=== PATIENT | male | born 1930 | race Caucasian/White ===

== ENCOUNTER → 2016-03-10 | Outpatient (CLI) | payer MEDICARE, BC ==
[~2016-03-10] MED LIST: ACTOS30 MG PO; AMBIEN 5MG TABLE5 MG PO; ASPIRIN 81M81 MG/TA2 PO; CORDARONE200 MG/TAB PO; CRESTOR 10MG10 MG PO; Colace PO; FLOMAX 0.40.4 MG/CAP PO; GLUCOPHAGE1000 MG PO; GLUCOTROL 5M5 MG/TAB PO; HUMALOG100 U/ML SC; HUMALOG100 U/ML SQ; JANUVIA 100MG100 MG PO; KLOR-CON M2020 MEQ PO; LANTUS100 U/ML SC; LASIX 40MG TABL40 MG PO; MAALOX MAX + ANT1 ML PO; NITROSTAT0.4 MG/TAB SL; PEPCID 20MG TAB20 MG PO; PLAVIX 75MG TAB75 MG PO; PRINIVIL10 MG PO; PROSCAR 5MG5 MG PO; ROXICODONE 55 MG/TAB PO; TOPROL XL 25MG25 MG PO; TRESIBA FL200 UNIT/1 SQ; TYLENOL 325MG325 MG PO; ZOFRAN 4MG T4 MG/TAB PO; ZOFRAN INJ4 MG/2 ML IV; ZOFRAN ODT4 MG PO
== END ==
LOC: SUN.DIA 02-17 15:30
DX: E11.40 Type 2 diabetes mellitus with diabetic neuropathy, unspecified (principal); E11.65 Type 2 diabetes mellitus with hyperglycemia; Z79.4 Long term (current) use of insulin; Z71.3 Dietary counseling and surveillance; E78.5 Hyperlipidemia, unspecified; I10 Essential (primary) hypertension; Z87.891 Personal history of nicotine dependence

== ENCOUNTER → 2016-04-21 | Outpatient (CLI) | payer MEDICARE, BC | LOC: SUN.DIA 08:52 | DX: E11.40 Type 2 diabetes mellitus with diabetic neuropathy, unspecified (principal); E11.65 Type 2 diabetes mellitus with hyperglycemia; Z79.4 Long term (current) use of insulin; Z68.32 Body mass index [BMI] 32.0-32.9, adult; Z71.3 Dietary counseling and surveillance; E78.5 Hyperlipidemia, unspecified; I10 Essential (primary) hypertension ==

== ENCOUNTER → 2016-07-20 | Outpatient (CLI) | payer MEDICARE, BC | LOC: SUN.DIA 14:07 | DX: E11.40 Type 2 diabetes mellitus with diabetic neuropathy, unspecified (principal); Z79.4 Long term (current) use of insulin; E78.5 Hyperlipidemia, unspecified; I10 Essential (primary) hypertension; E66.9 Obesity, unspecified; Z68.31 Body mass index [BMI] 31.0-31.9, adult; Z71.3 Dietary counseling and surveillance; Z87.891 Personal history of nicotine dependence | CPT/HCPCS: G0108 ==

== ENCOUNTER 2016-09-02 13:58 | Emergency (ER) | payer MEDICARE, BC ==
[~2016-09-02] VITALS: Ht 175.3 cm; Wt 97.7 kg
[~2016-09-02 13:58] MED LIST changes: -HUMALOG100 U/ML SQ; -TRESIBA FL200 UNIT/1 SQ
[2016-09-02 14:02] VITALS: TEMP 97.4
[2016-09-02 15:10] LABS: BASO % 0.6 % (0.0-2.0); EOS # 0.6 (0.0-0.7); EOS % 9.7 % (0-4.0); GRAN # 3.8 (1.4-6.5); GRAN % 60.5 % (42.2-75.2); HEMATOCRIT 40.9 % (42.0-52.0); HEMOGLOBIN 13.3 g/dl (13.5-18.0); LYMPH # 1.2 (1.2-3.4); LYMPH % 18.3 % (20.0-51.0); MEAN CELL VOLUME 86 fl (80.0-100.0); MEAN CORPUSCULAR HEMOGLOBIN 28 pg (27.0-31.0); MEAN CORPUSCULAR HGB CONC 33 g/dl (33.0-37.0); MEAN PLATELET VOLUME 10.6 fl (7.4-10.4); MONO # 0.7 (0.1-0.6); MONO % 10.6 % (1.7-9.3); PLATELET COUNT 200 K/mm3 (130-400); RED BLOOD COUNT 4.76 M/mm3 (4.20-5.60); REDCELL DISTRIBUTION WIDTH-CV 14.5 % (11.5-14.5); WHITE BLOOD COUNT 6.3 K/mm3 (4.8-10.8)
[2016-09-02] MEDS ORDERED: TRESIBA FL200 UNIT/1 SQ (15:13)
[2016-09-02] MEDS ORDERED: HUMALOG100 U/ML SQ (15:14)
[2016-09-02 15:24] LABS: ALANINE AMINOTRANSFERASE 23 U/L (21-72); ALBUMIN 3.7 gm/dL (3.5-5.0); ALKALINE PHOSPHATASE 65 U/L (50-136); ANION GAP 11 mmol/L (7-16); BILIRUBIN,TOTAL 0.5 mg/dL (0.0-1.0); BLOOD UREA NITROGEN 24 mg/dL (9-20); CALCIUM 8.8 mg/dL (8.4-10.2); CARBON DIOXIDE 26 mmol/L (22-30); CHLORIDE 99 mmol/L (98-107); CREATININE, serum 0.97 mg/dL (0.66-1.25); GLUCOSE 391 mg/dL (74-106); LIPASE 46 U/L (23-300); POTASSIUM 4.4 mmol/L (3.4-5.0); SODIUM 135 mmol/L (137-145); TOTAL PROTEIN 6.7 gm/dL (6.4-8.2)
[2016-09-02 15:25] LABS: C-REACTIVE PROTEIN < 0.5 mg/dL (0.0-0.9)
[2016-09-02 15:33] LABS: B-TYPE NATRIURETIC PEPTIDE 778 pg/mL (0-450); TROPONIN-I < 0.012 ng/mL (0.000-0.034)
[2016-09-02 15:36] LABS: ERYTHROCYTE SEDIMENTATION RATE 6 mm/hr (0-30)
[2016-09-02 16:20] VITALS: BP 167/71; PULSE 62
== END 2016-09-02 17:47 | disposition home or self-care (01) ==
LOC: COL.ER 13:58
PROVIDERS: Emergency Medicine
DX: E11.65 Type 2 diabetes mellitus with hyperglycemia (principal); R55 Syncope and collapse; I25.10 Atherosclerotic heart disease of native coronary artery without angina pectoris; Z95.1 Presence of aortocoronary bypass graft; I10 Essential (primary) hypertension; Z79.4 Long term (current) use of insulin; Z79.02 Long term (current) use of antithrombotics/antiplatelets
CPT/HCPCS: J1815; J7030

== ENCOUNTER → 2017-05-03 | Outpatient (CLI) | payer MEDICARE, BC ==
[~2017-05-03] MED LIST changes: +HUMALOG100 U/ML SQ; +TRESIBA FL200 UNIT/1 SQ
== END ==
LOC: SUN.DIA 08:19
DX: E11.40 Type 2 diabetes mellitus with diabetic neuropathy, unspecified (principal); Z79.4 Long term (current) use of insulin; I11.9 Hypertensive heart disease without heart failure; E78.5 Hyperlipidemia, unspecified; E66.9 Obesity, unspecified; Z68.32 Body mass index [BMI] 32.0-32.9, adult; Z71.3 Dietary counseling and surveillance; Z87.891 Personal history of nicotine dependence
CPT/HCPCS: G0108

== ENCOUNTER → 2017-08-23 | Outpatient (CLI) | payer MEDICARE, BC | LOC: SUN.DIA 08-02 16:13 | DX: E11.40 Type 2 diabetes mellitus with diabetic neuropathy, unspecified (principal); Z79.4 Long term (current) use of insulin; I11.9 Hypertensive heart disease without heart failure; E78.5 Hyperlipidemia, unspecified; E66.9 Obesity, unspecified; Z68.31 Body mass index [BMI] 31.0-31.9, adult; Z71.3 Dietary counseling and surveillance; Z87.891 Personal history of nicotine dependence | CPT/HCPCS: G0108 ==

== ENCOUNTER → 2017-09-14 | Outpatient (CLI) | payer MEDICARE, BC | LOC: SUN.DIA 13:41 | DX: E11.40 Type 2 diabetes mellitus with diabetic neuropathy, unspecified (principal); E78.5 Hyperlipidemia, unspecified; I10 Essential (primary) hypertension; E66.9 Obesity, unspecified; F17.210 Nicotine dependence, cigarettes, uncomplicated; Z79.4 Long term (current) use of insulin | CPT/HCPCS: G0108 ==

== ENCOUNTER → 2017-10-13 | Outpatient (CLI) | payer MEDICARE, BC | LOC: SUN.DIA 13:51 | DX: E11.40 Type 2 diabetes mellitus with diabetic neuropathy, unspecified (principal); E78.5 Hyperlipidemia, unspecified; I10 Essential (primary) hypertension; E66.9 Obesity, unspecified; F17.210 Nicotine dependence, cigarettes, uncomplicated; Z79.4 Long term (current) use of insulin | CPT/HCPCS: G0108 ==

== ENCOUNTER → 2018-01-19 | Outpatient (CLI) | payer MEDICARE, BC | LOC: SUN.DIA 01-12 11:03 | DX: E11.40 Type 2 diabetes mellitus with diabetic neuropathy, unspecified (principal); E78.5 Hyperlipidemia, unspecified; I10 Essential (primary) hypertension; E66.9 Obesity, unspecified; F17.210 Nicotine dependence, cigarettes, uncomplicated; Z79.4 Long term (current) use of insulin | CPT/HCPCS: G0108 ==

== ENCOUNTER → 2018-03-27 | Outpatient (CLI) | payer MEDICARE, BC | LOC: SUN.DIA 02-21 09:48 | DX: E11.40 Type 2 diabetes mellitus with diabetic neuropathy, unspecified (principal); E78.5 Hyperlipidemia, unspecified; I10 Essential (primary) hypertension; E66.9 Obesity, unspecified; F17.210 Nicotine dependence, cigarettes, uncomplicated; Z79.4 Long term (current) use of insulin | CPT/HCPCS: G0108 ==

== ENCOUNTER → 2018-06-13 | Outpatient (CLI) | payer MEDICARE, BC | LOC: SUN.DIA 05-22 08:00 | DX: E11.9 Type 2 diabetes mellitus without complications (principal); E78.5 Hyperlipidemia, unspecified; I10 Essential (primary) hypertension; Z79.4 Long term (current) use of insulin | CPT/HCPCS: G0108 ==

== ENCOUNTER 2018-06-23 05:19 | Emergency (ER) | payer MEDICARE, BC ==
[~2018-06-23] VITALS: Ht 175.3 cm; Wt 95.5 kg
[2018-06-23 06:07] LABS: BASO # 0.1 (0.0-0.2); EOS # 0.4 (0.0-0.7); EOS % 4.8 % (0-4.0); GRAN # 4.5 (1.4-6.5); GRAN % 62.5 % (42.2-75.2); HEMATOCRIT 42.9 % (42.0-52.0); HEMOGLOBIN 13.8 g/dl (13.5-18.0); LYMPH # 1.5 (1.2-3.4); LYMPH % 20.1 % (20.0-51.0); MEAN CELL VOLUME 86 fl (80.0-100.0); MEAN CORPUSCULAR HEMOGLOBIN 28 pg (27.0-31.0); MEAN CORPUSCULAR HGB CONC 32 g/dl (33.0-37.0); MEAN PLATELET VOLUME 10.7 fl (7.4-10.4); MONO # 0.8 (0.1-0.6); MONO % 11.2 % (1.7-9.3); PLATELET COUNT 253 K/mm3 (130-400); RED BLOOD COUNT 5.02 M/mm3 (4.20-5.60); REDCELL DISTRIBUTION WIDTH-CV 15.5 % (11.5-14.5)
[2018-06-23 06:21] LABS: ALANINE AMINOTRANSFERASE < 6 U/L (21-72); ALBUMIN 3.6 gm/dL (3.5-5.0); ALKALINE PHOSPHATASE 76 U/L (50-136); ANION GAP 12 mmol/L (7-16); AST,SGOT 25 U/L (15-37); BILIRUBIN,TOTAL 0.4 mg/dL (0.0-1.0); BLOOD UREA NITROGEN 21 mg/dL (9-20); CALCIUM 8.7 mg/dL (8.4-10.2); CARBON DIOXIDE 24 mmol/L (22-30); CHLORIDE 105 mmol/L (98-107); CREATININE, serum 1.02 (0.66-1.25); GLUCOSE 215 mg/dL (74-106); LIPASE 67 U/L (23-300); POTASSIUM 4.1 mmol/L (3.4-5.0); SODIUM 141 mmol/L (137-145); TOTAL PROTEIN 6.8 gm/dL (6.4-8.2)
[2018-06-23 06:24] VITALS: TEMP 97.3
[2018-06-23 06:33] LABS: TROPONIN-I 0.035 ng/mL (0.000-0.035)
[2018-06-23 07:14] LABS: PH 5 (5-8); SQUAMOUS EPITHELIAL None Seen /hpf; URINE APPEARANCE Clear; URINE BACTERIA None Seen /hpf; URINE BILIRUBIN Negative (NEGATIVE); URINE BLOOD Negative (NEGATIVE); URINE COLOR Yellow; URINE GLUCOSE 3+ (NEGATIVE); URINE KETONE Negative (NEGATIVE); URINE LEUKOCYTE ESTERASE Negative (NEGATIVE); URINE NITRATE Negative (NEGATIVE); URINE PROTEIN(semi-quant) 1+ (NEGATIVE); URINE RBC 0-2 /hpf; URINE UROBILINOGEN Negative (NEGATIVE); URINE WBC 0-2 /hpf
[2018-06-23 07:22] LABS: COLLECTION METHOD CLEAN CATCH
[2018-06-23 09:25] VITALS: BP 139/95; PULSE 57
== END 2018-06-23 09:50 | disposition left against medical advice (07) ==
LOC: COL.ER 05:19 → MEDICAL 06:59 → COL.ER 09:50
PROVIDERS: Emergency Medicine
DX: I20.9 Angina pectoris, unspecified (principal); Z95.1 Presence of aortocoronary bypass graft; Z79.02 Long term (current) use of antithrombotics/antiplatelets; Z79.4 Long term (current) use of insulin; Z79.82 Long term (current) use of aspirin

== ENCOUNTER → 2018-08-03 | Outpatient (CLI) | payer MEDICARE, BC | LOC: COL.RAD 07:27 | DX: Z01.812 Encounter for preprocedural laboratory examination (principal); I65.23 Occlusion and stenosis of bilateral carotid arteries; I65.03 Occlusion and stenosis of bilateral vertebral arteries; I65.1 Occlusion and stenosis of basilar artery | CPT/HCPCS: Q9967 ==

== ENCOUNTER → 2018-09-12 | Outpatient (CLI) | payer MEDICARE, BC | LOC: DIA.ED 13:35 | DX: E11.40 Type 2 diabetes mellitus with diabetic neuropathy, unspecified (principal); E78.5 Hyperlipidemia, unspecified; I10 Essential (primary) hypertension; E66.9 Obesity, unspecified; Z79.4 Long term (current) use of insulin | CPT/HCPCS: G0108 ==

== ENCOUNTER 2018-11-30 22:22 | Emergency (ER) | payer MEDICARE, BC ==
[~2018-11-30] VITALS: Wt 100.0 kg
[2018-11-30 22:47] LABS: BASO # 0.1 (0.0-0.2); BASO % 0.7 % (0.0-2.0); EOS # 0.3 (0.0-0.7); EOS % 3.1 % (0-4.0); GRAN # 7.4 (1.4-6.5); GRAN % 69.1 % (42.2-75.2); HEMATOCRIT 46.2 % (42.0-52.0); HEMOGLOBIN 14.7 g/dl (13.5-18.0); LYMPH # 1.9 (1.2-3.4); MEAN CELL VOLUME 87 fl (80.0-100.0); MEAN CORPUSCULAR HEMOGLOBIN 28 pg (27.0-31.0); MEAN CORPUSCULAR HGB CONC 32 g/dl (33.0-37.0); MEAN PLATELET VOLUME 10.1 fl (7.4-10.4); MONO # 0.9 (0.1-0.6); MONO % 8.8 % (1.7-9.3); PLATELET COUNT 254 K/mm3 (130-400); RED BLOOD COUNT 5.33 M/mm3 (4.20-5.60); REDCELL DISTRIBUTION WIDTH-CV 16.3 % (11.5-14.5)
[2018-11-30 22:53] LABS: INR 0.9 (0.8-3.0); PROTHROMBIN TIME 10.1 SECONDS (9.7-12.8)
[2018-11-30 22:56] LABS: PARTIAL THROMBOPLASTIN TIME 28.9 SECONDS (26.0-37.0)
[2018-11-30 22:57] LABS: ALBUMIN 3.9 gm/dL (3.5-5.0); BILIRUBIN,TOTAL 0.3 mg/dL (0.0-1.0); CALCIUM 9.2 mg/dL (8.4-10.2); CREATININE, serum 0.83 (0.66-1.25); POTASSIUM 5.6 mmol/L (3.4-5.0)
[2018-11-30 23:12] LABS: TROPONIN-I 0.062 ng/mL (0.000-0.035)
[2018-12-01 00:15] VITALS: BP 125/68; PULSE 80
== END 2018-12-01 00:35 | disposition short-term general hospital (02) ==
LOC: COL.ER 22:22
PROVIDERS: Emergency Medicine
DX: I21.4 Non-ST elevation (NSTEMI) myocardial infarction (principal); J81.1 Chronic pulmonary edema; I25.10 Atherosclerotic heart disease of native coronary artery without angina pectoris; I10 Essential (primary) hypertension; E78.5 Hyperlipidemia, unspecified; K21.9 Gastro-esophageal reflux disease without esophagitis; N40.0 Benign prostatic hyperplasia without lower urinary tract symptoms; Z79.1 Long term (current) use of non-steroidal anti-inflammatories (NSAID); Z79.4 Long term (current) use of insulin; Z79.82 Long term (current) use of aspirin; Z95.5 Presence of coronary angioplasty implant and graft; Z87.891 Personal history of nicotine dependence
CPT/HCPCS: J1644; J1940; J2405; J7030; Q9967

== ENCOUNTER 2019-03-16 14:28 | Outpatient (RCR) | payer MEDICARE, BC | END 2019-03-18 | disposition still patient (30) | LOC: COL.CR | DX: I21.4 Non-ST elevation (NSTEMI) myocardial infarction (principal); I50.9 Heart failure, unspecified ==

== ENCOUNTER 2019-04-06 13:29 | Outpatient (RCR) | payer MEDICARE, BC | END 2019-04-18 06:17 | disposition home or self-care (01) | LOC: COL.CR 13:29 | DX: Z48.812 Encounter for surgical aftercare following surgery on the circulatory system (principal); Z95.5 Presence of coronary angioplasty implant and graft; I25.2 Old myocardial infarction; I50.9 Heart failure, unspecified ==

== ENCOUNTER 2019-06-25 23:38 | Emergency (ER) | payer MEDICARE, BC ==
[~2019-06-25] VITALS: Ht 177.8 cm; Wt 88.6 kg
[2019-06-25 23:44] VITALS: TEMP 98.3
[2019-06-25] MEDS ORDERED: TRULICITY1.5 MG/0.5 SQ (23:53)
[2019-06-25] MEDS ORDERED: JARDIANCE10 (23:58)
[2019-06-26 00:30] VITALS: BP 132/72; PULSE 64
== END 2019-06-26 00:32 | disposition home or self-care (01) ==
LOC: COL.ER 23:38
DX: S91.115A Laceration without foreign body of left lesser toe(s) without damage to nail, initial encounter (principal); I25.10 Atherosclerotic heart disease of native coronary artery without angina pectoris; I10 Essential (primary) hypertension; E11.9 Type 2 diabetes mellitus without complications; Z79.4 Long term (current) use of insulin; Z79.02 Long term (current) use of antithrombotics/antiplatelets; Z79.82 Long term (current) use of aspirin; W26.8XXA Contact with other sharp object(s), not elsewhere classified, initial encounter; Y92.009 Unspecified place in unspecified non-institutional (private) residence as the place of occurrence of the external cause

== ENCOUNTER → 2019-08-09 | Outpatient (CLI) | payer MEDICARE, BC ==
[~2019-08-09] MED LIST changes: +JARDIANCE10; +TRULICITY1.5 MG/0.5 SQ
== END ==
LOC: ZCOL.LAB 17:59
DX: Z20.828 Contact with and (suspected) exposure to other viral communicable diseases (principal)

== ENCOUNTER 2020-06-27 04:20 | Inpatient (IN) | payer MEDICARE, BC ==
[~2020-06-27] VITALS: Ht 175.3 cm; Wt 87.1 kg
[2020-06-27 04:36] LABS: BASO % 0.5 % (0.0-2.0); EOS # 0.1 (0.0-0.7); EOS % 1.4 % (0-4.0); GRAN # 4.7 (1.4-6.5); GRAN % 82.5 % (42.2-75.2); HEMATOCRIT 43.5 % (42.0-52.0); HEMOGLOBIN 13.8 g/dl (13.5-18.0); LYMPH # 0.7 (1.2-3.4); LYMPH % 11.9 % (20.0-51.0); MEAN CELL VOLUME 87 fl (80.0-100.0); MEAN CORPUSCULAR HEMOGLOBIN 28 pg (27.0-31.0); MEAN CORPUSCULAR HGB CONC 32 g/dl (33.0-37.0); MEAN PLATELET VOLUME 10.7 fl (7.4-10.4); MONO # 0.2 (0.1-0.6); MONO % 3.5 % (1.7-9.3); PLATELET COUNT 217 K/mm3 (130-400); RED BLOOD COUNT 4.99 M/mm3 (4.20-5.60); REDCELL DISTRIBUTION WIDTH-CV 14.9 % (11.5-14.5)
[2020-06-27 04:48] LABS: ALANINE AMINOTRANSFERASE 19 U/L (4-49); ALBUMIN 3.6 gm/dL (3.5-5.0); ALKALINE PHOSPHATASE 56 U/L (50-136); ANION GAP 10 mmol/L (7-16); AST,SGOT 32 U/L (15-37); BILIRUBIN,TOTAL 0.7 mg/dL (0.0-1.0); BLOOD UREA NITROGEN 18 mg/dL (9-20); CALCIUM 8.4 mg/dL (8.4-10.2); CARBON DIOXIDE 26 mmol/L (22-30); CHLORIDE 102 mmol/L (98-107); CREATININE, serum 0.89 (0.66-1.25); GLUCOSE 174 mg/dL (74-106); LIPASE 64 U/L (23-300); POTASSIUM 3.9 mmol/L (3.4-5.0); SODIUM 139 mmol/L (137-145); TOTAL PROTEIN 6.7 gm/dL (6.4-8.2)
[2020-06-27 04:49] LABS: C-REACTIVE PROTEIN < 0.5 mg/dL (0.0-0.9)
[2020-06-27 04:50] LABS: COLLECTION METHOD CLEAN CATCH
[2020-06-27 04:55] LABS: PH 7 (5-8); SQUAMOUS EPITHELIAL None Seen /hpf; URINE APPEARANCE Clear; URINE BACTERIA None Seen /hpf; URINE BILIRUBIN Negative (NEGATIVE); URINE BLOOD Negative (NEGATIVE); URINE COLOR Straw; URINE GLUCOSE 3+ (NEGATIVE); URINE KETONE Negative (NEGATIVE); URINE LEUKOCYTE ESTERASE Negative (NEGATIVE); URINE NITRATE Negative (NEGATIVE); URINE PROTEIN(semi-quant) Negative (NEGATIVE); URINE RBC 0-2 /hpf; URINE UROBILINOGEN Negative (NEGATIVE)
[2020-06-27 04:59] LABS: TROPONIN-I 0.569 ng/mL (0.000-0.035)
[2020-06-27] MEDS ORDERED: KAPSPARGO SPRIN25 MG PO (07:19)
[2020-06-27] MEDS ORDERED: VASOTEC 5MG5 MG/TAB PO (07:20)
[2020-06-27] MEDS ORDERED: ALEVE 220MG220 MG PO (07:28)
[2020-06-27 07:33] LABS: CHOLESTEROL RISK RATIO 3.2; MAGNESIUM 1.8 mg/dL (1.6-2.3)
[2020-06-27 08:00] VITALS: BP 118/43; PULSE 75; TEMP 99.1
[2020-06-27 09:32] LABS: INR 1.1 (0.8-3.0); PROTHROMBIN TIME 12.2 SECONDS (9.7-12.8)
[2020-06-27 09:35] LABS: PARTIAL THROMBOPLASTIN TIME 46.8 SECONDS (26.0-37.0)
--- NOTE | 2020-06-27 09:50 | NUR ---
SW met with the patient to discuss discharge plan. The patient lives in [place] with his , Radha (h.#[phone]). He reports independence with ADLs and has a walker. The patient's PCP is Dr. Erik Herrera and he receives his medications from [facility]. The patient's Living will is in EMR. He states that he does have a DPOA-HC and that it should designate his . The patient plans to return home with his upon discharge. He states that him and his are in the process of moving to [facility] and should be moving there the first july. SW discussed home health services. The patient states that he is not sure if he would want home health and would need to talk to his about it. SW then contacted and reviewed the above information with the patient's , Radha. Radha confirms that they will be moving to their [place] apartment at [facility] around 07/14. SW discussed home health and it's benefits. The patient's would like to go ahead and get home health set up through [facility]. CLAUDIA contacted and faxed a referral to Maira at [facility]. Maira reports that they are able to accept the patient for services. SW to continue to follow. *Discharge plan: home with and [facility]*
--- NOTE | 2020-06-27 09:52 | NUR ---
Troponin of 1.760 reported to HARRY Barcenas. Previous Troponin of 1.450 reported to HARRY Barcenas at 0800.
[2020-06-27] MEDS ORDERED: PRILOSEC 20MG20 MG PO (10:37)
--- NOTE | 2020-06-27 11:08 | NUR ---
Dr Manrique here to see patient.
--- NOTE | 2020-06-27 11:35 | NUR ---
Patient admitted to room 325 from ED. Admission assessment completed. Med Red updated. Patient transferred from ED with Heparin gtt infusing into RAC IV. RAC IV with infiltration noted, approx 3cm area of induration noted at site. Heparin gtt stopped, IV dc'd. Patient and spouse updated on POC. No c/o at this time.
[2020-06-27 11:36] VITALS: BP 105/41; PULSE 64; TEMP 97.8
--- NOTE | 2020-06-27 13:25 | NUR ---
Initial visit attempt; Patient had visitor, Leader Writer didn't want to interrupt and could tell there was a slight hearing issue with patient. Leader Writer left 'prayer card' from Leader Writer with nurse who was going into patient's room.
[2020-06-27 16:00] VITALS: BP 115/46; PULSE 69; TEMP 98.6
--- NOTE | 2020-06-27 19:03 | NUR ---
Discharge instructions reviewed with patient and spouse, verbalized understanding. Discharged via wheelchair to auto/home with spouse at 1850.
--- NOTE | 2020-06-28 14:05 | NUR ---
FaxedDC order to [facility] at 204 pm
== END 2020-06-27 18:50 | disposition home health service (06) | DRG 917 ==
LOC: COL.ER 04:20 → SURG 05:44
PROVIDERS: Emergency Medicine; Nurse Practitioner Family; ADMIT Student in an Organized Health Care Education/Training Program
DX: T88.59XA Other complications of anesthesia, initial encounter (principal); I21.A1 Myocardial infarction type 2; R11.2 Nausea with vomiting, unspecified; R19.7 Diarrhea, unspecified; I25.10 Atherosclerotic heart disease of native coronary artery without angina pectoris; Z95.1 Presence of aortocoronary bypass graft; E78.5 Hyperlipidemia, unspecified; I73.9 Peripheral vascular disease, unspecified; I25.5 Ischemic cardiomyopathy; I10 Essential (primary) hypertension; K21.9 Gastro-esophageal reflux disease without esophagitis; N40.0 Benign prostatic hyperplasia without lower urinary tract symptoms; Z87.891 Personal history of nicotine dependence; I65.23 Occlusion and stenosis of bilateral carotid arteries
CPT/HCPCS: J1644; J1940; J2405

== ENCOUNTER 2021-07-28 07:02 | Emergency (ER) | payer MEDICARE, BC ==
[~2021-07-28] VITALS: Ht 177.8 cm; Wt 92.3 kg
[~2021-07-28 07:02] MED LIST changes: +ALEVE 220MG220 MG PO; +KAPSPARGO SPRIN25 MG PO; +PRILOSEC 20MG20 MG PO; +VASOTEC 5MG5 MG/TAB PO
[2021-07-28 07:04] VITALS: TEMP 97.8
[2021-07-28 07:16] LABS: BASO % 0.3 % (0.0-2.0); EOS # 0.6 K/mm3 (0.0-0.7); EOS % 6.4 % (0.0-4.0); GRAN # 6.2 K/mm3 (1.4-6.5); GRAN % 68.1 % (42.2-75.2); HEMATOCRIT 44.2 % (42.0-52.0); HEMOGLOBIN 14.4 g/dl (13.5-18.0); LYMPH # 1.2 K/mm3 (1.2-3.4); LYMPH % 13.6 % (20.0-51.0); MEAN CELL VOLUME 86 fl (80.0-100.0); MEAN CORPUSCULAR HEMOGLOBIN 28 pg (27-31); MEAN CORPUSCULAR HGB CONC 33 g/dl (33.0-37.0); MEAN PLATELET VOLUME 10.5 fl (7.4-10.4); MONO % 11.4 % (1.7-9.3); PLATELET COUNT 206 K/mm3 (130-400); RED BLOOD COUNT 5.13 M/mm3 (4.20-5.60)
[2021-07-28 07:26] LABS: COLLECTION METHOD CLEAN CATCH
[2021-07-28 07:38] LABS: ALBUMIN 3.3 gm/dL (3.4-4.8); BILIRUBIN,TOTAL 0.5 mg/dL (0.2-1.2); CALCIUM 8.5 mg/dL (8.4-10.2); POTASSIUM 3.4 mmol/L (3.5-4.5); TOTAL PROTEIN 6.9 gm/dL (6.2-8.1)
[2021-07-28 07:46] LABS: PH 5 (5-8); SQUAMOUS EPITHELIAL 0-2 /hpf (0-10); URINE APPEARANCE Clear (CLEAR/HAZY); URINE BACTERIA Rare /hpf (NONE SEEN); URINE BILIRUBIN Negative (NEGATIVE); URINE BLOOD 1+ (NEGATIVE); URINE COLOR Yellow (YELLOW); URINE GLUCOSE 2+ (NEGATIVE); URINE KETONE Negative (NEGATIVE); URINE LEUKOCYTE ESTERASE Negative (NEGATIVE); URINE NITRATE Negative (NEGATIVE); URINE PROTEIN(semi-quant) 1+ (NEGATIVE); URINE RBC 0-2 /hpf (0-2); URINE UROBILINOGEN Negative (NEGATIVE)
[2021-07-28 07:58] LABS: TSH w REFLEX 2.646 uIU/mL (0.350-4.940)
[2021-07-28] MEDS ORDERED: ZOFRAN ODT4 MG PO (10:00)
[2021-07-28 10:38] VITALS: BP 151/64; PULSE 60
== END 2021-07-28 10:49 | disposition home or self-care (01) ==
LOC: COL.ER 07:02
PROVIDERS: Emergency Medicine
DX: E11.649 Type 2 diabetes mellitus with hypoglycemia without coma (principal); E87.6 Hypokalemia; R41.82 Altered mental status, unspecified; Z87.891 Personal history of nicotine dependence
CPT/HCPCS: J2405

== ENCOUNTER → 2022-06-03 | Outpatient (CLI) | payer MEDICARE, BC | LOC: DIA.ED 05-26 16:13 | DX: E11.65 Type 2 diabetes mellitus with hyperglycemia (principal); Z79.4 Long term (current) use of insulin; I10 Essential (primary) hypertension; E78.5 Hyperlipidemia, unspecified | CPT/HCPCS: G0270 ==